=== PATIENT | female | born 1965 | race Caucasian/White ===

== ENCOUNTER 2021-06-03 14:53 | Emergency (ER) | payer OTHER ==
[~2021-06-03 14:53] MED LIST: AMLODIPINE BESY10 MG PO; ASPIRIN EC325 MG PO; ATORVASTATIN CA80 MG PO; BASAGLAR K100 UNIT/1 SQ; DITROPAN 5 MG TA5 MG PO; EFFEXOR XR 75 M75 MG PO; GABAPENTIN300 MG PO; HUMALOG 10100 UNITS/ SQ; LISINOPRIL40 MG PO; METOPROLOL SUCC50 MG PO; SPIRONOLACTONE1 EACH PO; TOPROL XL25 MG PO
[2021-06-03 15:51] LABS: HEMOGLOBIN 15.1 gm/dl (12.3-15.3); RED BLOOD COUNT 5.08 M/UL (4.00-5.10); WHITE BLOOD COUNT 6.4 K/UL (4.5-11.0)
[2021-06-03] MEDS ORDERED: ZOFRAN 4 MG TAB4 MG PO (17:20)
[2021-06-03] MEDS ORDERED: BENTYL 20MG TAB20 MG PO (17:20)
== END 2021-06-03 20:45 | disposition home or self-care (01) ==
LOC: ER1 14:53
PROVIDERS: Physician Assistant
DX: E86.0 Dehydration (principal); R11.2 Nausea with vomiting, unspecified; E87.1 Hypo-osmolality and hyponatremia; E10.65 Type 1 diabetes mellitus with hyperglycemia; I10 Essential (primary) hypertension; Z20.822 Contact with and (suspected) exposure to COVID-19
CPT/HCPCS: 80053; 82009; 82800; 82962; 85025; 96374; 96375; 99284; J2405; U0002

== ENCOUNTER → 2021-12-20 | Outpatient (CLI) | payer OTHER ==
[~2021-12-20] MED LIST changes: +BENTYL 20MG TAB20 MG PO; +ZOFRAN 4 MG TAB4 MG PO
== END ==
LOC: KOH-I 16:00
DX: R42 Dizziness and giddiness (principal)
CPT/HCPCS: 70450